=== PATIENT | male | born 1975 | race Caucasian/White ===

== ENCOUNTER 2021-09-23 20:18 | Emergency (ER) | payer SELFPAY ==
[~2021-09-23] VITALS: Ht 182.9 cm; Wt 91.0 kg
--- NOTE | 2021-09-23 20:33 | PHYS DOC ---
Adult General Chief Complaint Chief Complaint: NAUSEA/VOMITING/DIARRHEA HPI HPI Patient is a 45-year-old male with a past medical history significant for smoking, 42 pack years and COPD who presents with a chief complaint of concern for exposure to Freon. States that about 3 hours ago he was working on an air conditioner and cut a piece of copper tubing. States that he put it in his mouth to blow it out and got a few drops of fluid in there. States it may have been Freon but is not exactly sure what it was. States that since then he has had a cough. Denies any headache, changes in vision, pain or trouble swallowing, chest pain, wheezing, abdominal pain, nausea, vomiting. Denies any lightheadedness or dizziness. Denies any oropharyngeal swelling. Denies any eye redness, pain or discharge. Review of Systems Review of Systems Review of systems otherwise unremarkable except noted in HPI Physical Exam Physical Exam Constitutional: Well developed, well nourished, no acute distress, non-toxic appearance. [] HENT: Normocephalic, atraumatic, bilateral external ears normal, oropharynx moist, no oral exudates, nose normal. [] Eyes: conjunctiva normal, no discharge. [] Neck: Normal range of motion, no tenderness, supple, no stridor. [] Cardiovascular:Heart rate regular rhythm, no murmur [] Lungs & Thorax: Bilateral breath sounds clear to auscultation [] Abdomen: soft, no tenderness, no masses, no pulsatile masses. [] Skin: Warm, dry, no erythema, no rash. [] Back: No tenderness, no CVA tenderness. [] Extremities: No tenderness, no cyanosis, no clubbing, ROM intact, no edema. [] Neurologic: Alert and oriented X 3, normal motor function, normal sensory function, no focal deficits noted. [] Psychologic: Affect normal, judgement normal, mood normal. [] EKG EKG [] Radiology/Procedures Radiology/Procedures [] Heart Score C/O Chest Pain: No Risk Factors: Risk Factors: DM, Current or recent (<one month) smoker, HTN, HLP, family history of CAD, obesity. Risk Scores: Risk Factors: DM, Current or recent (<one month) smoker, HTN, HLP, family history of CAD, obesity. Course & Med Decision Making Course & Med Decision Making Patient is a 45-year-old male who presents with concern for exposure to Freon Vital signs notable for tachycardia. Physical exam noted above. EKG and troponin nonconcerning. Chest x-ray nonconcerning. Patient asymptomatic in the ED. Discussed findings with [facility] who felt exposure was most likely minimal and not concerned. Recommended an EKG and troponin, and observation to the 4-hour tarun and discharge home as long as patient is feeling well. Discussed all findings with patient. Advised to follow-up on Sunday with primary care physician to discuss ED visit and set up a follow-up. Gave return precautions to the ED. Patient grateful, verbalized understanding and agree with plan of discharge [] Dragon Disclaimer Dragon Disclaimer This electronic medical record was generated, in whole or in part, using a voice recognition dictation system. Departure Departure: Impression: Primary Impression: Accidental poisoning by freon Disposition: 01 HOME / SELF CARE / HOMELESS Condition: GOOD Referrals: PCP,NO (PCP) ALINE MEAD MD Patient Instructions: Chronic Obstructive Pulmonary Disease, Cough, Adult Additional Instructions: Thank you for coming into the emergency department tonight and allowing us to take care of you. Please read the attached information carefully to go over things we discussed. Scripts No Active Prescriptions or Reported Meds AROLDO SHEEHAN MD Sep 23, 2021 20:33
--- NOTE | 2021-09-23 20:50 | EKG ---
[address] [address] Test Date: 2021-09-23 Test Time: 20:44:51 Pat Name: LATONYA CONTEH Department: Room: Gender: M [employer]st: : 1975 Requested By: AROLDO SHEEHAN Order Number: [id number] Reading MD: Bob Holley Measurements Intervals [place] Rate: 98 P: 67 MO: 116 QRS: 54 QRSD: 90 T: 42 QT: 348 QTc: 446 Interpretive Statements SINUS RHYTHM NORMAL ECG RI6.02 No previous ECG available for comparison Electronically Signed On 09-24-2021 15:03:15 [employer]ENT[employer] EQUIPMENT REPAIRER by Bob Holley
--- NOTE | 2021-09-23 21:21 | RAD ---
AP chest. HISTORY: Cough AP view was taken of the chest. Lungs are free of infiltrates. Heart is normal in size without heart failure. There is no effusion. IMPRESSION: 1. No acute chest disease. Electronically signed by: Matthew Farias MD (09/23/2021 9:18 PM) [facility]
[2021-09-23 21:30] VITALS: BP 117/68
== END 2021-09-23 21:37 | disposition home or self-care (01) ==
LOC: ER 20:18
DX: T53.5X1A Toxic effect of chlorofluorocarbons, accidental (unintentional), initial encounter (principal); J44.9 Chronic obstructive pulmonary disease, unspecified; Y92.89 Other specified places as the place of occurrence of the external cause
CPT/HCPCS: 36415; 71045; 84484; 93005; 99285